=== PATIENT | male | born 1945 | race Caucasian/White ===

== ENCOUNTER 2017-07-16 10:56 | Emergency (ER) | payer MEDICARE ==
[2017-07-16 11:53] LABS: ABS Basophils 0 10^3/ul (0-0.2); ABS Eosinophils 0.1 10^3/ul (0-0.6); ABS Lymphocytes 1.3 10^3/ul (1.0-4.8); ABS Monocytes 0.8 10^3/ul (0-0.8); ABS Neutrophils 4.5 10^3/ul (1.5-7.7); ABS Nucleated RBC 0 10^3/ul; Eosinophil % 0.9 % (0-6); Hematocrit 46 % (42-52); Hemoglobin 15.8 g/dl (14.0-18.0); Lymphocyte % 19.5 % (25-47); Mean Corpuscular HGB Conc 35 g/dl (31-36); Mean Corpuscular Hemoglobin 30 pg (27-31); Mean Corpuscular Volume 86 fL (80-94); Mean Platelet Volume 8 um3 (7.4-10.4); Nucleated Red Blood Cells % 0; Platelet Count 315 10^3/ul (150-450); Red Blood Count 5.31 10^6/ul (4.0-5.4); Red Cell Distribution Width 14 % (10.5-15); White Blood Count 6.6 10^3/ul (3.5-10.8)
[2017-07-16 12:03] LABS: EGFR Non-African American 91.1 (>60)
--- NOTE | 2017-07-16 12:13 | ED ---
Psychiatric Complaint - HPI Summary HPI Summary: 72-year-old male presents with anxiety for the past couple months. He states he has been managed by a psychiatrist and the medications have been putting on have not been working. He states he tried to get him back with his primary for continued management his primary told to come here. He denies any suicidal or homicidal ideations. He states the only thing that work once was he took one of his sons xanax two 2 days ago and that seemed to help. He states he is currently taking gabapentin and Celexa for anxiety. He states he does not medicate with alcohol or drugs. - History Of Current Complaint Chief Complaint: EDPsychosocial Time Seen by Provider: 07/16/17 11:10 - Allergies/Home Medications Allergies/Adverse Reactions: Allergies Allergy/AdvReac Type Severity Reaction Status Date / Time No Known Allergies Allergy Verified 07/16/17 11:07 Home Medications: Home Medications Citalopram TAB* [CeleXA TAB*] 20 mg PO DAILY 07/16/17 [History Confirmed ] DULoxetine DR CAP* [Cymbalta CAP*] 20 mg PO DAILY 07/16/17 [History Confirmed ] Gabapentin CAP(*) [Neurontin 100 mg CAP(*)] 200 mg PO QID 07/16/17 [History Confirmed 07/16/17] Levothyroxine TAB* [Synthroid TAB*] 175 mcg PO DAILY 07/16/17 [History Confirmed 07/16/17] PMH/Surg Hx/FS Hx/Imm Hx Endocrine/Hematology History: Denies: Hx Anticoagulant Therapy Cardiovascular History: Reports: Hx Hypertension Infectious Disease History: No Infectious Disease History: Denies: Traveled Outside the [place] in Last 30 Days - Family History Known Family History: Positive: Other - anxiety - Social History Alcohol Use: None Substance Use Type: Reports: None Smoking Status (MU): Never Smoked Tobacco Review of Systems Negative: Fever Negative: Chest Pain Negative: Shortness Of Breath Positive: Anxious All Other Systems Reviewed And Are Negative: Yes Physical Exam Triage Information Reviewed: Yes Vital Signs On Initial Exam: Initial Vitals Temp Pulse Resp BP Pulse Ox 96.2 F 64 17 138/68 97 07/16/17 11:03 07/16/17 11:03 07/16/17 11:03 07/16/17 11:03 07/16/17 11:03 Vital Signs Reviewed: Yes Appearance: Positive: Well-Appearing Skin: Positive: Warm, Dry Head/Face: Positive: Normal Head/Face Inspection Eyes: Positive: Normal, Conjunctiva Clear Respiratory/Lung Sounds: Positive: Clear to Auscultation, Breath Sounds Present Cardiovascular: Positive: Normal, RRR Abdomen Description: Positive: Nontender, Soft Bowel Sounds: Positive: Present Musculoskeletal: Positive: Normal Neurological: Positive: Normal Psychiatric: Positive: Anxious Diagnostics - Vital Signs Vital Signs Temp Pulse Resp BP Pulse Ox 07/16/17 11:03 96.2 F 64 17 138/68 97 - Laboratory Lab Results: Lab Results 07/16/17 07/16/17 07/16/17 Range/Units 11:20 11:24 11:24 WBC 6.6 (3.5-10.8) 10^3/ul RBC 5.31 (4.0-5.4) 10^6/ul Hgb 15.8 (14.0-18.0) g/dl Hct 46 (42-52) % MCV 86 (80-94) fL MCH 30 (27-31) pg MCHC 35 (31-36) g/dl RDW 14 (10.5-15) % Plt Count 315 (150-450) 10^3/ul MPV 8 (7.4-10.4) um3 Neut % (Auto) 67.7 (38-83) % Lymph % (Auto) 19.5 L (25-47) % [place] % (Auto) 11.5 H (0-7) % Eos % (Auto) 0.9 (0-6) % Baso % (Auto) 0.4 (0-2) % Absolute Neuts (auto) 4.5 (1.5-7.7) 10^3/ul Absolute Lymphs (auto) 1.3 (1.0-4.8) 10^3/ul Absolute Monos (auto) 0.8 (0-0.8) 10^3/ul Absolute Eos (auto) 0.1 (0-0.6) 10^3/ul Absolute Basos (auto) 0 (0-0.2) 10^3/ul Absolute Nucleated RBC 0 10^3/ul Nucleated RBC % 0 Sodium 138 (133-145) mmol/L Potassium 3.6 (3.5-5.0) mmol/L Chloride 105 (101-111) mmol/L Carbon Dioxide 29 (22-32) mmol/L Anion Gap 4 (2-11) mmol/L BUN 13 (6-24) mg/dL Creatinine 0.83 (0.67-1.17) mg/dL Est GFR ( Amer) 117.1 (>60) Est GFR (Non-Af Amer) 91.1 (>60) BUN/Creatinine Ratio 15.7 (8-20) Glucose 93 (70-100) mg/dL Calcium 10.2 (8.6-10.3) mg/dL Total Bilirubin 0.90 (0.2-1.0) mg/dL AST 17 (13-39) U/L ALT 21 (7-52) U/L Alkaline Phosphatase 107 H (34-104) U/L Total Protein 7.2 (6.4-8.9) g/dL Albumin 4.2 (3.2-5.2) g/dL Globulin 3.0 (2-4) g/dL Albumin/Globulin Ratio 1.4 (1-3) TSH Pending Salicylates Pending Urine Opiates Screen None detected (None Detect) Acetaminophen Pending Ur Barbiturates Screen None detected (None Detect) Ur Phencyclidine Scrn None detected (None Detect) Ur Amphetamines Screen None detected (None Detect) U Benzodiazepines Scrn Presumptive positive A (None Detect) Urine Cocaine Screen None detected (None Detect) U Cannabinoids Screen None detected (None Detect) Serum Alcohol Pending Result Diagrams: 07/16/17 11:24 07/16/17 11:24 Lab Statement: Any lab studies that have been ordered have been reviewed, and results considered in the medical decision making process. Course/Dx - Course Course Of Treatment: 72-year-old male presents with anxiety for the past couple months. He states he has been managed by a psychiatrist and the medications have been putting on have not been working. He states he tried to get him back with his primary for continued management his primary told to come here. He denies any suicidal or homicidal ideations. He states the only thing that work once was he took one of his sons xanax two 2 days ago and that seemed to help. He states he is currently taking gabapentin and Celexa for anxiety. He states he does not medicate with alcohol or drugs. medically clear for E. MH felt that patient could go home. - Differential Dx/Clinical Impression Differential Diagnosis/HQI/PQRI: Positive: Anxiety, Depression Provider Diagnosis: Anxiety Discharge - Discharge Plan Condition: Stable Disposition: HOME Prescriptions: hydrOXYzine HCL TAB* [Atarax TAB 50 MG *] 50 mg PO QID PRN #15 tab PRN Reason: Anxiety Patient Education Materials: Depression (ED), Anxiety (ED) Referrals: [facility] [Outside] (Please follow up with [facility] as soon as possible.) Reg Sanchez MD [Primary Care Provider] -
[2017-07-16 15:23] LABS: Urine Appearance Turbid; Urine Blood Negative (Negative); Urine Color Amber; Urine Ketones Trace (Negative); Urine Protein Negative (Negative); Urine Specific Gravity 1.026 (1.010-1.030); Urine Urobilinogen Positive (Negative)
[2017-07-16 16:32] VITALS: BP 150/79
== END 2017-07-16 16:39 | disposition home or self-care (01) ==
LOC: ED 10:56
DX: F41.9 Anxiety disorder, unspecified (principal); Z86.79 Personal history of other diseases of the circulatory system
CPT/HCPCS: 36415; 80053; 80307; 80320; 80329; 81003; 84443; 85025; 99283; G0480

== ENCOUNTER 2019-06-11 16:21 | Emergency (ER) | payer MEDICARE ==
--- OUTSIDE RECORDS SUMMARY | 2019-06-11 16:39 | XMS REPORT ---
:1945 Author Organization [facility] Care Team Providers Name Role Phone Bear Valerie Primary Care Physician Unavailable Allergies, Adverse Reactions, Alerts Allergy Code CodeSystem Reaction Severity Criticality Status Start Substance Date Moderate Medications Medication Medication Medication Start Stop Route Dose Status Fill Code CodeSystem Date Date Instructions clonazepam 19740606 RxNorm 2019- oral 0.5 mg active /4 to 1/2 18 08-17 05/03 to tablet four 1/2 times a day tablet as needed for four 30 day(s) times a day citalopram 598040 RxNorm 2019- oral 10 mg 1 active Take 1 tablet 10-17-18 tablet once a day once a for 30 day(s) day desvenlafaxine 0827072 RxNorm 2019- oral 25 mg 1 active 1 tablet succinate 08- tablet once a day extended for 30 day(s) release 24 hr once a day quetiapine 427374 RxNorm 2019- oral 25 mg completed for 30 3-30 07-03 tablet day(s) lithium 209058 RxNorm 2019- oral 150 mg 1 completed 1 capsule carbonate 10-04-07 capsule once a day once a for 30 day(s) day clonazepam 19740606 RxNorm 2019- oral 0.5 mg completed for 30 05-04 tablet day(s) clonazepam 19740606 RxNorm 2019- oral 0.5 mg completed for 20 4-04 06-11 tablet day(s) citalopram 415766 RxNorm 2019- oral 10 mg completed 1/2 tablet -19 05/2 once a day tablet for 30 day(s) once a day Problems Problem Name Code CodeSystem Alternate Alternate Start End Status Narrative Code CodeSystem Date Date 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, 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 Relevant diagnostic tests/laboratory data Narrative No Information Procedures Procedure Code CodeSystem Target Date of Status Service Device Device Device Name Site Procedure Delivery Code Name UID Location Psychotherap [id number] SNOMED-CT () 2018-11-14 complete Mental y, 30 87 d Health- minutes with [place] patient [address] with an [facility], and [facility], service [id number] (List [id number] separately in addition to the code for primary procedure) Psychotherap [id number] SNOMED-CT () 2019-04-01 complete Mental y, 45 04 d Health- minutes with [place] patient [address], [id number] [id number] Psychotherap [id number] SNOMED-CT () 2019-01-31 complete Mental y, 45 04 d Health- minutes with Amy[address], [id number] [id number] Psychotherap [id number] SNOMED-CT () 2019-03-07 complete Mental y, 45 04 d Health- minutes with [place], [id number] [phone] Psychotherap [id number] SNOMED-CT () 2019-02-28 complete Mental y, 45 04 d Health- minutes with [place], [id number] Psychotherap [id number] SNOMED-CT () 2018-10-08 complete Mental y, 45 04 d Health- minutes with Amy[address], [id number] Psychotherap [id number] SNOMED-CT () 2018-10-17 complete Mental y, 45 04 d Health- minutes with [place] patient [address], [id number] [id number] Psychotherap [id number] SNOMED-CT () 2018-09-18 complete Mental y, 45 04 d Health- minutes with [place] patient [address], [id number] [id number] Psychotherap [id number] SNOMED-CT () 2018-09-25 complete Mental y, 45 04 d Health- minutes with [place], [id number] Psychotherap [id number] SNOMED-CT () 2018-07-30 complete Mental y, 45 04 d Health- minutes with [address], [id number] [id number] Psychotherap [id number] SNOMED-CT () 2018-08-06 complete Mental y, 45 04 d Health- minutes with [address], [id number] [id number] Psychotherap [id number] SNOMED-CT () 2018-09-04 complete Mental y, 45 04 d Health- minutes with [address], [id number] [id number] Psychotherap [id number] SNOMED-CT () 2018-10-02 complete Mental y, 45 04 d Health- minutes with [address], [id number] [id number] Psychotherap [id number] SNOMED-CT () 2018-10-29 complete Mental y, 45 04 d Health- minutes with [address], [id number] [id number] Psychotherap [id number] SNOMED-CT () 2018-11-13 complete Mental y, 45 04 d Health- minutes with [address], [id number] [id number] Psychotherap [id number] SNOMED-CT () 2018-08-13 complete Mental y, 45 04 d Health- minutes with [address], [id number] [id number] Psychotherap [id number] SNOMED-CT () 2018-08-28 complete Mental y, 45 04 d Health- minutes with [address], [id number] [id number] Psychotherap [id number] SNOMED-CT () 2018-09-10 complete Mental y, 45 04 d Health- minutes with [address], [id number] [id number] Psychotherap [id number] SNOMED-CT () 2018-08-22 complete Mental y, 45 04 d Health- minutes with [address], [id number] [id number] Psychotherap [id number] SNOMED-CT () 2018-11-28 complete Mental y, 45 04 d Health- minutes with [place] patient [address], [id number] [phone] Psychotherap [id number] SNOMED-CT () 2019-01-15 complete Mental y, 45 04 d Health- minutes with [place] patient [address], [id number] [id number] Psychotherap [id number] SNOMED-CT () 2019-01-08 complete Mental y, 45 04 d Health- minutes with [place] patient [address], [id number] [id number] Psychotherap [id number] SNOMED-CT () 2018-12-20 complete Mental y, 45 04 d Health- minutes with [place] patient [address], [id number] [id number] Psychotherap [id number] SNOMED-CT () 2019-01-24 complete Mental y, 45 04 d Health- minutes with [place] patient [address], [id number] [phone] Psychotherap [id number] SNOMED-CT () 2018-10-24 complete Mental y, 45 04 d Health- minutes with [place] patient [address], [id number] [phone] Office or [id number] SNOMED-CT () 2018-10-02 complete Mental other 7 d Health- outpatient [place] visit for [address] established [id number] patient, [phone] which requires at least 2 of these 3 tejada components: An expanded problem focused history; An expanded problem focused examination; Medical decision making of low Office or [id number] SNOMED-CT () 2018-08-01 complete Mental other 7 d Health- outpatient [place] visit for [address], established [id number] patient, [phone] which requires at least 2 of these 3 tejada components: An expanded problem focused history; An expanded problem focused examination; Medical decision making of low Office or [id number] SNOMED-CT () 2018-09-25 complete Mental other 7 d Health- outpatient [place] visit for [address] [facility], established [id number] patient, [phone] which requires at least 2 of these 3 tejada components: An expanded problem focused history; An expanded problem focused examination; Medical decision making of low Office or [id number] SNOMED-CT () 2019-01-23 complete Mental other 7 d Health- outpatient [place] visit for [address] [facility], established [id number] patient, [phone] which requires at least 2 of these 3 tejada components: An expanded problem focused history; An expanded problem focused examination; Medical decision making of low Office or [id number] SNOMED-CT () 2019-01-17 complete Mental other 7 d Health- outpatient [place] visit for [address] [facility], established [id number] patient, [phone] which requires at least 2 of these 3 tejada components: An expanded problem focused history; An expanded problem focused examination; Medical decision making of low Office or [id number] SNOMED-CT () 2019-02-27 complete Mental other 7 d Health- outpatient [place] visit for [address] [facility], established [id number] patient, [phone] which requires at least 2 of these 3 tejada components: An expanded problem focused history; An expanded problem focused examination; Medical decision making of low Office or [id number] SNOMED-CT () 2019-04-03 complete Mental other 6 d Health- outpatient [place] visit for [address] [facility], established [id number] patient, [phone] which requires at least 2 of these 3 tejada components: A problem focused history; A problem focused examination; Straightforw zulma medical decision making. Counselin Office or [id number] SNOMED-CT () 2018-10-17 complete Mental other 6 d Health- outpatient [place] visit for [address] [facility], [facility] [id number] patient, [phone] which requires at least 2 of these 3 tejada components: A problem focused history; A problem focused examination; Straightforw zulma medical decision making. Counselin Office or [id number] SNOMED-CT () 2018-11-14 complete Mental other 6 d Health- outpatient [place] visit for [address], established [id number] patient, [phone] which requires at least 2 of these 3 tejada components: A problem focused history; A problem focused examination; Straightforw zulma medical decision making. Counselin Office or [id number] SNOMED-CT () 2018-12-18 complete Mental other 6 d Health- outpatient [place] visit for [address], established [id number] patient, [phone] which requires at least 2 of these 3 tejada components: A problem focused history; A problem focused examination; Straightforw zulma [facility] 2018-11-19 complete Mental d [address], [id number] [id number] SNOMED-CT () 2018-11-05 complete Mental d [address], [id number] SNOMED-CT () 2019-04-09 [facility] Mental d [address], [id number] [id number] Encounters/Encounter Diagnoses Encounter Name Encounter Diagnosis Diagnosis Diagnosis Date of Service Code Code Name CodeSystem Diagnosis Delivery Location [facility] [id number] Recurrent SNOMED-CT 2019-04-09 Behavioral Individual 30 depressive Health min disorder, Clinic [address] [place] [address], without [id number] psychotic symptoms Vital Signs No Information Social History Element Description Description Start End Code CodeSystem AdditionalInfo Date Date SexAssignedAtBirth Male 1946-0 M AdministrativeGender 2-19 Hospital Discharge Instructions Reason For Referral Medical Equipment FDA Assessments
[2019-06-11] MEDS ORDERED: Sulfamethox/Trimethoprim DS 800/160* TAB PO ONE (16:46)
--- NOTE | 2019-06-11 16:48 | ED ---
Lower Extremity - HPI Summary HPI Summary: Patient complains of wound to right foot 3 weeks. Redness and pain 1 week at site of wound. Denies any other pain, injury or symptoms. - History of Current Complaint Chief Complaint: EDExtremityLower Stated Complaint: POSS INFECTION RT LEG AND FOOT PER Time Seen by Provider: 06/11/19 16:38 Hx Obtained From: Patient Mechanism Of Injury: Other Severity Initially: Moderate Severity Currently: Mild Pain Intensity: 2 Pain Scale Used: 0-10 Numeric Timing: Constant Location: Is Discrete @ Character Of Pain: Aching Associated Signs And Symptoms: Positive: Swelling, Redness Aggravating Factor(s): Standing, Ambulation - Allergies/Home Medications Allergies/Adverse Reactions: Allergies Allergy/AdvReac Type Severity Reaction Status Date / Time No Known Allergies Allergy Verified 11/26/18 09:45 PMH/Surg Hx/FS Hx/Imm Hx Endocrine/Hematology History: Denies: Hx Anticoagulant Therapy Cardiovascular History: Reports: Hx Hypertension History: Denies: Hx Dialysis Sensory History: Denies: Hx Eye Prosthesis Opthamlomology History: Denies: Hx Legally Blind EENT History: Denies: Hx Deafness Psychiatric History: Denies: Hx Eating Disorder, Hx of Violent Episodes Against Others Infectious Disease History: No Infectious Disease History: Denies: Traveled Outside the [place] in Last 30 Days - Family History Known Family History: Positive: Other - anxiety - Social History Alcohol Use: None Substance Use Type: Reports: None Smoking Status (MU): Never Smoked Tobacco Review of Systems Constitutional: Negative Eyes: Negative ENT: Negative Cardiovascular: Negative Respiratory: Negative Gastrointestinal: Negative Genitourinary: Negative Musculoskeletal: Negative Skin: Other Neurological/Mental Status: Negative Psychological: Normal All Other Systems Reviewed And Are Negative: Yes Physical Exam - Summary Physical Exam Summary: Healing wound on medial surface of the right foot. No purulent discharge. Localized erythema. No apical abscess. Calf soft nontender. Full range of motion of right knee without redness. Mild swelling to right knee. Triage Information Reviewed: Yes Vital Signs On Initial Exam: Initial Vitals Temp Pulse Resp BP Pulse Ox 97.5 F 78 18 148/79 98 06/11/19 16:25 06/11/19 16:25 06/11/19 16:25 06/11/19 16:25 06/11/19 16:25 Vital Signs Reviewed: Yes Appearance: Positive: Well-Appearing Skin: Positive: Warm Head/Face: Positive: Normal Head/Face Inspection Eyes: Positive: Normal Neck: Positive: Supple Respiratory/Lung Sounds: Positive: Clear to Auscultation Cardiovascular: Positive: Normal Abdomen Description: Positive: Nontender Musculoskeletal: Positive: Normal Neurological: Positive: Normal Psychiatric: Positive: Normal AVPU Assessment: Alert - Joselyn Coma Scale Best Eye Response: 4 - Spontaneous Best Motor Response: 6 - Obeys Commands Best Verbal Response: 5 - Oriented Coma Scale Total: 15 Procedures - Sedation Patient Received Moderate/Deep Sedation with Procedure: No Diagnostics - Vital Signs Vital Signs Temp Pulse Resp BP Pulse Ox 06/11/19 16:25 97.5 F 78 18 148/79 98 - Laboratory Lab Statement: Any lab studies that have been ordered have been reviewed, and results considered in the medical decision making process. Lower Extremity Course/Dx - Course Course Of Treatment: Patient complains of wound to right foot 3 weeks. Redness and pain 1 week at site of wound. Denies any other pain, injury or symptoms. Vital signs within normal limits. - Diagnoses Provider Diagnoses: Cellulitis, Swelling of knee joint, right Discharge ED - Sign-Out/Discharge Documenting (check all that apply): Patient Departure - Discharge Plan Condition: Stable Disposition: HOME Prescriptions: Sulfamethox/Trimethoprim DS* [Bactrim DS 800/160 TAB*] 1 tab PO BID 10 Days #20 tab Patient Education Materials: Cellulitis (ED) Referrals: Reg Sanchez MD [Primary Care Provider] - Additional Instructions: Take Bactrim as directed for cellulitis. Keep foot wound clean and dry and protected. Ice right knee 15 minutes at a time. Follow up with your orthopedic surgeon for further evaluation. Return to the ED for any new or worsening symptoms. - Billing Disposition and Condition Condition: STABLE Disposition: Home
[2019-06-11 17:02] VITALS: BP 145/80
== END 2019-06-11 17:00 | disposition home or self-care (01) ==
LOC: ED 16:21
DX: L03.115 Cellulitis of right lower limb (principal); M25.461 Effusion, right knee; I10 Essential (primary) hypertension
CPT/HCPCS: 99282; A9270-GY

== ENCOUNTER 2023-08-28 14:58 | Observation (INO) ==
[2023-08-28 15:25] LABS: ABS Eosinophils 0.2 10^3/uL (0.0-0.5); ABS Lymphocytes 1.1 10^3/uL (1.0-4.8); ABS Monocytes 0.9 10^3/uL (0.0-1.1); ABS Neutrophils 5.3 10^3/uL (1.5-7.6); ABS Nucleated RBC 0.01 10^3/ul; Hemoglobin 16.5 g/dL (13.2-16.3); Lymphocyte % 14.9 %; Mean Corpuscular Hemoglobin 29.7 pg (27-33); Mean Corpuscular Hgb Conc 34.3 g/dL (31-36); Mean Corpuscular Volume 86.8 fL (80-97); Mean Platelet Volume 7.8 fL (7.5-11.2); Nucleated Red Blood Cells % 0.1 %/100WBC (0.0-0.8); Platelet Count 197 10^3/uL (150-450); Red Blood Count 5.54 10^6/uL (4.06-5.63); Red Cell Distribution Width 14.1 % (12-17); White Blood Count 7.6 10^3/uL (3.6-10.2)
[2023-08-28] MEDS: Heparin 5000 UNITS/ML 1 mL VIAL IV SCH (16:25)
[2023-08-28] MEDS: Heparin DRIP 25,000 UNITS BAG 25,000 UNITS/250 ML BAG IV SCH (16:30)
[2023-08-28 16:33] LABS: Albumin 4.4 g/dL (3.2-5.2); Albumin/Globulin Ratio 1.6 (1-3); Creatinine, Serum 0.95 mg/dL (0.67-1.17); Globulin 2.7 g/dL (2-4); Magnesium 2.2 mg/dL (1.9-2.7); Total Bilirubin 0.6 mg/dL (0.2-1.0); Total Protein 7.1 g/dL (6.4-8.9); eGFR CKD-EPI 81.9 (>60)
[2023-08-28 17:00] LABS: High Sensitivity Troponin 1 Hr 172 pg/mL (<20)
[2023-08-28 19:29] LABS: HDL Cholesterol 35.7 mg/dL
[2023-08-28 22:42] LABS: ABS Eosinophils 0.2 10^3/uL (0.0-0.5); ABS Lymphocytes 2.1 10^3/uL (1.0-4.8); ABS Monocytes 0.7 10^3/uL (0.0-1.1); ABS Neutrophils 3.6 10^3/uL (1.5-7.6); ABS Nucleated RBC 0.01 10^3/ul; Eosinophil % 3.2 %; Hemoglobin 16.2 g/dL (13.2-16.3); Lymphocyte % 31.9 %; Mean Corpuscular Hemoglobin 30.2 pg (27-33); Mean Corpuscular Hgb Conc 35.2 g/dL (31-36); Mean Corpuscular Volume 85.7 fL (80-97); Mean Platelet Volume 7.8 fL (7.5-11.2); Nucleated Red Blood Cells % 0.2 %/100WBC (0.0-0.8); Platelet Count 195 10^3/uL (150-450); Red Blood Count 5.37 10^6/uL (4.06-5.63); Red Cell Distribution Width 14.1 % (12-17); White Blood Count 6.7 10^3/uL (3.6-10.2)
[2023-08-28 22:48] LABS: INR 1.08 (0.83-1.13)
[2023-08-28 22:58] LABS: TSH Ultra Thyroid Stim Horm 0.82 mcIU/mL (0.34-5.60)
[2023-08-28 23:08] LABS: Calcium 9.7 mg/dL (8.6-10.3); Creatinine, Serum 0.96 mg/dL (0.67-1.17); Potassium 4.2 mmol/L (3.5-5.0); eGFR CKD-EPI 80.9 (>60)
[2023-08-29 02:53] LABS: High Sensitivity Troponin 3 Hr 424 pg/mL (<20)
[2023-08-29] MEDS: NS 0.9% 1000 ml BAG 1,000 ML IV SCH ×2 (05:23→12:37)
[2023-08-29] MEDS: Aspirin EC 81 mg TAB.EC (enteric coated) PO SCH (07:21)
[2023-08-29] MEDS ORDERED: Sulfur Hexaflouride MICROSPHR 25 MG VIAL ONE (08:24)
[2023-08-29] MEDS ORDERED: fentaNYL 100 mcg/2 ml 50 MCG/ML VIAL ONE (08:51)
[2023-08-29] MEDS ORDERED: VERAPAMIL 2.5 MG/ML 2 ML VIAL ** 5 mg/2 ml ONE (08:51)
[2023-08-29] MEDS ORDERED: nitroGLYCERIN DRIP 25,000 MCG/250 ML BTL ONE (08:51)
[2023-08-29] MEDS ORDERED: Midazolam 5 mg/5 ml VIAL 1 mg/ml 5 ml VIAL (5 mg) ONE (08:51)
[2023-08-29] MEDS ORDERED: Heparin 1,000 UNIT/ML 10 ml (10,000 UNITS) CATHLAB/DIALYSIS ONE (08:51)
[2023-08-29] MEDS ORDERED: Lidocaine 1% MPF 5 ML VIAL ONE ×2 (09:05→09:46)
[2023-08-29] MEDS ORDERED: Heparin 2 UNITS/ML 1000 mls 2,000 ML IV ONE (09:05)
[2023-08-29] MEDS ORDERED: Iohexol 350 (CONTRAST) 200 ML MDV IV ONE (09:25)
[2023-08-29] MEDS ORDERED: hydrALAZINE 20 mg/ml 1 ML Vial IV ONE (12:00)
[2023-08-29] MEDS ORDERED: Heparin DRIP 25,000 UNITS BAG 25,000 UNITS/250 ML BAG IV ONE (13:06)
[2023-08-29 13:43] VITALS: BP 165/77
== END 2023-08-29 14:25 | disposition short-term general hospital (02) ==
LOC: EDHOLD 14:58 → ED 14:58 → MEDTELE 19:42
PROVIDERS: ADMIT Hospitalist; ATTEND Hospitalist

== ENCOUNTER 2023-11-09 09:50 | Inpatient (IN) ==
[2023-11-09 10:42] LABS: ABS Eosinophils 0.1 10^3/uL (0.0-0.5); ABS Monocytes 0.6 10^3/uL (0.0-1.1); ABS Nucleated RBC 0.01 10^3/ul; Eosinophil % 1.6 %; Hematocrit 41.4 % (38-53); Hemoglobin 14.1 g/dL (13.2-16.3); Lymphocyte % 21.3 %; Mean Corpuscular Hemoglobin 30.2 pg (27-33); Mean Corpuscular Volume 88.9 fL (80-97); Nucleated Red Blood Cells % 0.1 %/100WBC (0.0-0.8); Platelet Count 183 10^3/uL (150-450); Red Blood Count 4.66 10^6/uL (4.06-5.63); Red Cell Distribution Width 14.4 % (12-17); White Blood Count 4.7 10^3/uL (3.6-10.2)
[2023-11-09 11:54] LABS: ALT 15 U/L (7-52); AST 17 U/L (13-39); Acetaminophen < 15 mcg/mL; Albumin 3.9 g/dL (3.2-5.2); Albumin/Globulin Ratio 1.7 (1-3); Alkaline Phosphatase 87 U/L (35-149); Anion Gap 10 mmol/L (2-16); Blood Urea Nitrogen 13 mg/dL (6-24); CO2 Carbon Dioxide 21 mmol/L (22-32); Calcium 9.4 mg/dL (8.6-10.3); Chloride 107 mmol/L (101-111); Creatinine, Serum 0.76 mg/dL (0.67-1.17); Globulin 2.3 g/dL (2-4); Glucose 95 mg/dL (70-100); Potassium 4.3 mmol/L (3.5-5.0); Salicylate < 2.50 mg/dL (<30); Sodium 138 mmol/L (135-145); Total Bilirubin 0.9 mg/dL (0.2-1.0); Total Protein 6.2 g/dL (6.4-8.9)
[2023-11-09 11:59] LABS: TSH Ultra Thyroid Stim Horm 2.38 mcIU/mL (0.34-5.60)
[2023-11-09 12:33] LABS: Urine Appearance Clear; Urine Bilirubin Negative (Negative); Urine Blood Negative (Negative); Urine Color Yellow; Urine Glucose Negative (Negative); Urine Ketones Trace (Negative); Urine Nitrite Negative (Negative); Urine Protein Trace (Negative); Urine Specific Gravity 1.024 (1.002-1.030); Urine Urobilinogen 1+ (Negative)
[2023-11-09 12:43] LABS: Alcohol, S < 13 mg/dL (<13)
[2023-11-09 13:13] LABS: Urine Benzodiazepine Screen None Detected (None Detect); Urine Cannabinoids Screen None Detected (None Detect); Urine Opiates Screen None Detected (None Detect)
[2023-11-09] MEDS ORDERED: Al Hydrox/Mg Hydrox/Simet LIQ 30 ML UDC PO PRN (14:18)
[2023-11-10] MEDS: Cholecalciferol (VIT D3) 1,000 unit TAB PO SCH (08:17)
[2023-11-10 08:30] LABS: HDL Cholesterol 34.4 mg/dL
[2023-11-12 09:45] VITALS: BP 133/71
== END 2023-11-12 16:04 | disposition home or self-care (01) | DRG 885 ==
LOC: ED 09:50 → EDHOLD 14:18 → BSU 14:24
PROVIDERS: ADMIT Psychiatry & Neurology Psychiatry; ATTEND Psychiatry & Neurology Psychiatry